=== PATIENT | male | born 1975 | race American Indian/Alaskan Native ===

== ENCOUNTER 2020-05-06 08:51 | Emergency (ER) | payer MEDICAID ==
[2020-05-06 09:08] VITALS: BP 125/79
[2020-05-06] MEDS ORDERED: KETOROLAC 60 MG/2 ML INJ IM ONE (09:12)
[2020-05-06] MEDS ORDERED: predniSONE 20 MG TAB PO ONE (09:12)
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
== END 2020-05-06 11:15 | disposition home or self-care (01) ==
LOC: ED 08:51
DX: S39.012A Strain of muscle, fascia and tendon of lower back, initial encounter (principal); Z79.899 Other long term (current) drug therapy; X58.XXXA Exposure to other specified factors, initial encounter; Y93.89 Activity, other specified; Y92.89 Other specified places as the place of occurrence of the external cause; Y99.8 Other external cause status
CPT/HCPCS: 96372; 99282; J1885; J7512

== ENCOUNTER 2020-05-08 12:19 | Emergency (ER) | payer MEDICAID ==
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
[2020-05-08 13:22] LABS: Basophils # (Auto) 0.1 K/mm3 (0.0-0.1); Basophils % (Auto) 0.7 % (0.0-1.8); Eosinophils # (Auto) 0.1 K/mm3 (0.0-0.4); Eosinophils % (Auto) 1.1 % (0.0-4.3); Hemoglobin 13.1 gm/dl (11.8-15.2); Lymphocytes # (Auto) 2.4 K/mm3 (1.2-5.4); Mean Corpuscular HGB Conc 32 % (32-34); Mean Corpuscular Volume 72 fl (84-94); Monocytes # (Auto) 0.9 K/mm3 (0.0-0.8); Monocytes % (Auto) 11.7 % (0.0-7.3); Platelet Count 330 K/mm3 (140-440); Red Blood Count 5.66 M/mm3 (3.65-5.03)
[2020-05-08 13:44] LABS: Alanine Aminotransferase 19 units/L (7-56); Albumin 4.1 g/dL (3.9-5); Blood Urea Nitrogen 10 mg/dL (9-20); Calcium 9.2 mg/dL (8.4-10.2); Hemolysis Index 9
[2020-05-08 14:04] LABS: BUN/Creatinine Ratio 14
[2020-05-08] MEDS ORDERED: MORPHINE 4 MG/1 ML INJ IV ONE ×2 (14:28→16:30)
[2020-05-08] MEDS ORDERED: ONDANSETRON 4 MG/2 ML INJ IV ONE (14:28)
[2020-05-08] MEDS ORDERED: KETOROLAC 30 MG/1 ML INJ IV ONE (14:28)
[2020-05-08 15:02] LABS: Bilirubin,Urine NEG (Negative); Blood,Urine NEG (Negative); Color,Urine Yellow (Yellow); Mucus,Urine 3+ /HPF
[2020-05-08 15:05] VITALS: BP 124/79
--- NOTE | 2020-05-08 15:21 | Cat Scan Report ---
CT abdomen pelvis w con INDICATION: Upper abdominal pain.. TECHNIQUE: All CT scans at this location are performed using the following dose modulation technique: Automated exposure control. CONTRAST: Omnipaque 300, 100 cc IV injection. COMPARISON: None available. CT ABDOMEN: The parenchymal organs are unremarkable in appearance. Negative for abdominal mass, fluid or inflammation. The bowel is not dilated or thickened. CT PELVIS: Negative for distal ureteral stone, pelvic fluid collection or inflammation. A few scatter ed diverticula are noninflamed. The appendix is normal. IMPRESSION: Negative for obstruction or localized inflammation. Signer Name: Ashok Decker MD Signed: 05/08/2020 3:17 PM Workstation Name: [id number]
[2020-05-08] MEDS ORDERED: methylPREDNISolone Sod Succinate 125 MG/2 ML INJ IV ONE (16:30)
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
== END 2020-05-08 17:01 | disposition home or self-care (01) ==
LOC: ED 12:19
DX: M54.6 Pain in thoracic spine (principal); R10.13 Epigastric pain; F17.200 Nicotine dependence, unspecified, uncomplicated; F12.10 Cannabis abuse, uncomplicated; Z98.890 Other specified postprocedural states; Z79.899 Other long term (current) drug therapy
CPT/HCPCS: 36415; 74177; 80053; 81001; 83690; 85025; 96374; 96375; 99284; J1885; J2270; J2405; Q9967

== ENCOUNTER 2020-05-14 07:33 | Emergency (ER) | payer MEDICAID ==
[2020-05-14] MEDS ORDERED: ASPIRIN 325 MG TAB PO ONE (07:44)
--- NOTE | 2020-05-14 08:23 | XRay Report ---
CHEST 2 VIEWS INDICATION / CLINICAL INFORMATION: Chest Pain. COMPARISON: None available. FINDINGS: SUPPORT DEVICES: None. HEART / MEDIASTINUM: No significant abnormality. LUNGS / PLEURA: No significant pulmonary or pleural abnormality. No pneumothorax. ADDITIONAL FINDINGS: No significant additional findings. IMPRESSION: 1. No acute findings. Signer Name: Se Romano MD Signed: 05/14/2020 8:19 AM Workstation Name: [id number]
[2020-05-14 08:45] LABS: Basophils # (Auto) 0.1 K/mm3 (0.0-0.1); Eosinophils # (Auto) 0.1 K/mm3 (0.0-0.4); Eosinophils % (Auto) 1.2 % (0.0-4.3); Monocytes # (Auto) 0.8 K/mm3 (0.0-0.8); Monocytes % (Auto) 10.5 % (0.0-7.3)
[2020-05-14 08:51] LABS: Basophils % (Auto) 0.8 % (0.0-1.8); Hematocrit 41.6 % (35.5-45.6); Hemoglobin 13.4 gm/dl (11.8-15.2); Lymphocytes # (Auto) 2.1 K/mm3 (1.2-5.4); Lymphocytes % (Auto) 26.5 % (13.4-35.0); Mean Corpuscular HGB Conc 32 % (32-34); Mean Corpuscular Volume 72 fl (84-94); Platelet Count 352 K/mm3 (140-440); Red Cell Distribution Width 14.5 % (13.2-15.2)
[2020-05-14 08:58] LABS: Blood Urea Nitrogen 12 mg/dL (9-20); Calcium 9.3 mg/dL (8.4-10.2); Hemolysis Index 2
[2020-05-14 08:59] LABS: BUN/Creatinine Ratio 17
[2020-05-14] MEDS ORDERED: ONDANSETRON 4 MG ODT TAB PO ONE ×2 (12:04→14:35)
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
[2020-05-14] MEDS ORDERED: ALUM-MAG HYDROXIDE-SIMETHICONE 200-200-20MG/5ML ORAL LIQD 30 ML PO ONE (14:35)
[2020-05-14] MEDS ORDERED: KETOROLAC 30 MG/1 ML INJ IM ONE (14:35)
[2020-05-14 15:04] VITALS: BP 153/86
== END 2020-05-14 14:59 | disposition home or self-care (01) ==
LOC: ED 07:33
DX: S39.012A Strain of muscle, fascia and tendon of lower back, initial encounter (principal); K21.9 Gastro-esophageal reflux disease without esophagitis; R07.89 Other chest pain; Z98.890 Other specified postprocedural states; Z79.899 Other long term (current) drug therapy; X58.XXXA Exposure to other specified factors, initial encounter; Y93.89 Activity, other specified; Y92.89 Other specified places as the place of occurrence of the external cause; Y99.8 Other external cause status
CPT/HCPCS: 36415; 71046; 80048; 84484; 85025; 93005; 96372; 99284; J1885; Q0162

== ENCOUNTER 2021-08-20 06:04 | Emergency (ER) | payer MEDICAID ==
[2021-08-20 06:26] VITALS: BP 134/84
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
[2021-08-20] MEDS ORDERED: fentaNYL 100 MCG/2 ML INJ IM ONE (06:42)
[2021-08-20] MEDS ORDERED: ONDANSETRON 4 MG/2 ML INJ IM ONE (06:42)
[2021-08-20] MEDS ORDERED: LIDOCAINE JELLY (2%) 5 ML TOPICAL TP ONE (06:43)
[2021-08-20 07:33] LABS: Basophils # (Auto) 0.1 K/mm3 (0.0-0.1); Basophils % (Auto) 0.8 % (0.0-1.8); Eosinophils # (Auto) 0.1 K/mm3 (0.0-0.4); Eosinophils % (Auto) 1.8 % (0.0-4.3); Hemoglobin 11.7 gm/dl (11.8-15.2); Lymphocytes # (Auto) 2.5 K/mm3 (1.2-5.4); Lymphocytes % (Auto) 31.4 % (13.4-35.0); Mean Corpuscular HGB Conc 31 % (32-34); Mean Corpuscular Volume 73 fl (84-94); Monocytes % (Auto) 11.9 % (0.0-7.3); Platelet Count 324 K/mm3 (140-440); Red Blood Count 5.24 M/mm3 (3.65-5.03); Red Cell Distribution Width 15.3 % (13.2-15.2)
[2021-08-20 07:44] LABS: Alanine Aminotransferase 20 units/L (7-56); Albumin 3.9 g/dL (3.9-5); Blood Urea Nitrogen 8 mg/dL (9-20); Calcium 8.9 mg/dL (8.4-10.2); Hemolysis Index 5
[2021-08-20 07:50] LABS: BUN/Creatinine Ratio 11
== END 2021-08-20 08:23 | disposition home or self-care (01) ==
LOC: ED 06:04
DX: K64.9 Unspecified hemorrhoids (principal); K21.9 Gastro-esophageal reflux disease without esophagitis; Z98.890 Other specified postprocedural states
CPT/HCPCS: 36415; 80053; 85025; 96372; 99284; J2405; J3010